=== PATIENT | male | born 1950 | race Caucasian/White ===

== ENCOUNTER → 2020-08-25 12:46 | Outpatient (REF) | payer MEDICARE, SELFPAY ==
--- NOTE | 2020-08-25 12:52 | HM_ITS ---
IDENTIFICATION DATA: 70-year-old male. INDICATION FOR TEST: Transient cerebral ischemic attack. TECHNIQUE: The patient was hooked up to cardiac event monitor on 08/25/2020, for a total period of 30 days to 09/24/2020. The patient was continuously monitored during this time. FINDINGS: Baseline rhythm is normal sinus rhythm with heart rate varying from 58 to 97 beats per minute. There was 1 isolated PVC noted. There were no other arrhythmias noted. No atrial fibrillation noted. The patient did not report any events. CONCLUSION: Cardiac event monitor is remarkable for: 1. Baseline normal sinus rhythm with 1 isolated PVC. 2. No atrial fibrillation. 3. No patient reported events. Nishant Carpenter MD NRS/MODL / [id number]
== END ==
LOC: HO.CARD 12:46
PROVIDERS: Visit Provider Internal Medicine Cardiovascular Disease
DX: I63.9 Cerebral infarction, unspecified (principal)
CPT/HCPCS: 93270

== ENCOUNTER 2020-11-13 11:50 | Outpatient (REF) | payer MEDICARE, OTHER, SELFPAY ==
[2020-11-13 12:22] LABS: MANUAL DIFF FLAG NO
[2020-11-13 12:30] LABS: Basophils Percent Auto 0.4 % (0-2); Eosinophils Absolute Auto 0.2 X10*3/uL (0.0-0.4); Eosinophils Percent Auto 3.3 % (0-4); Hematocrit 40.3 % (42-52); Hemoglobin 13.2 g/dl (14.0-18.0); Imm Gran Abs Auto 0.02 X10*3/uL (0.00-0.03); Imm Gran Pct Auto 0.4 % (0.0-0.4); Lymphocytes Absolute Auto 0.9 X10*3/uL (1.2-4.9); Lymphocytes Percent Auto 15.4 % (20-40); Mean Corpuscular HGB Conc 32.8 g/dl (31.0-36.0); Mean Corpuscular Hemoglobin 28.6 pg (27.0-33.0); Mean Corpuscular Volume 87.2 fL (80-98); Mean Platelet Volume 10.1 fL (9.4-12.4); Monocytes Absolute Auto 0.5 X10*3/uL (0.1-1.2); Monocytes Percent Auto 9.3 % (2-11); Neutrophils Absolute Auto 3.9 X10*3/uL (2.0-8.3); Neutrophils Percent Auto 71.2 % (45-73); Platelet Count 208 X10*3/uL (160-400); Red Blood Count 4.62 X10*6/uL (4.60-5.80); Red Cell Distribution Width 13.7 % (11.0-16.0); White Blood Count 5.5 X10*3/uL (4.8-10.8)
[2020-11-13 12:41] LABS: Estimated Average Glucose 186 mg/dL; Hemoglobin A1c % 8.1 %
[2020-11-13 13:03] LABS: Alanine Aminotransferase 17 U/L (0-40); Alkaline Phosphatase 72 U/L (39-117); Anion Gap 12 (12-20); Aspartate Amino Transferase 12 U/L (5-37); Bilirubin Total 0.7 mg/dL (0.0-1.0); Blood Urea Nitrogen 15 mg/dL (9-16); Calcium 8.8 mg/dL (8.4-10.2); Carbon Dioxide 26 mmol/L (22-29); Chloride 106 mmol/L (96-108); Cholesterol 160 mg/dL; Estimated Glomerular Filt Rate > 60; Glucose Fasting 130 mg/dL (60-99); HDL Cholesterol 40 mg/dL; LDL Cholesterol Calculated 111 mg/dl; Potassium 4.4 mmol/l (3.3-5.1); Sodium 140 mmol/L (135-145); Total Protein 6.9 g/dL (6.5-8.0); Triglycerides 49 mg/dL
[2020-11-13 13:36] LABS: Creatinine Urine 81.73 mg/dL; Microalbum/Creatinine Ratio Ur 14.6 ug/mg cr
== END 2020-11-13 11:51 | disposition home or self-care (01) ==
LOC: HO.LAB 11:50
PROVIDERS: PCP Internal Medicine; Visit Provider Internal Medicine
DX: Z00.00 Encounter for general adult medical examination without abnormal findings (principal); E11.9 Type 2 diabetes mellitus without complications
CPT/HCPCS: 36415; 80053; 80061; 82043; 83036; 85025

== ENCOUNTER 2021-03-31 15:49 | Emergency (ER) | payer MEDICARE, OTHER, SELFPAY ==
[2021-03-31 16:17] VITALS: BP 128/67; PULSE 82; RESP 14; TEMP 36.8; O2SAT 96; BMI 25.7
[2021-03-31] MEDS: Diphth,Pertus(ACell),Tet Adult 0.5 ML SYRINGE IM (16:43)
[2021-03-31] MEDS: Lidocaine HCl 1 % MPF 5 ML VIAL SUBCUT (16:45)
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
== END 2021-03-31 17:15 | disposition home or self-care (01) ==
PROVIDERS: Emergency Provider Internal Medicine
DX: S61.212A Laceration without foreign body of right middle finger without damage to nail, initial encounter (principal); W26.0XXA Contact with knife, initial encounter; E11.9 Type 2 diabetes mellitus without complications; E78.5 Hyperlipidemia, unspecified; Y93.9 Activity, unspecified; Y92.019 Unspecified place in single-family (private) house as the place of occurrence of the external cause; Y99.9 Unspecified external cause status; Z86.73 Personal history of transient ischemic attack (TIA), and cerebral infarction without residual deficits; Z79.4 Long term (current) use of insulin; Z79.02 Long term (current) use of antithrombotics/antiplatelets
CPT/HCPCS: 12001; 90471; 90715; 99284

== ENCOUNTER 2022-01-26 10:01 | Emergency (ER) | payer MEDICARE, OTHER, SELFPAY ==
[2022-01-26 10:03] VITALS: BP 198/80; PULSE 77; RESP 18; TEMP 36.2; O2SAT 99; BMI 27.1
--- NOTE | 2022-01-26 12:22 | ED.SKABFB ---
HPI - Skin/Abscess/Foreign Bdy General Chief complaint: Skin/Abscess/Foreign Body Stated complaint: Shingles? Time Seen by Provider: 01/26/22 12:13 Source: patient Mode of arrival: ambulatory Limitations: no limitations History of Present Illness HPI narrative: 71-year-old diabetic male presents for left-sided torso rash that started 3 days ago. It is painful, the pain is burning. Patient had the shingles vaccine a couple of years ago. Related Data Home Medications Medication Instructions Recorded Confirmed aspirin 81 mg tablet,delayed 81 mg PO DAILY 11/12/20 09/07/21 release (Adult Low Dose Aspirin) atorvastatin 80 mg tablet 80 mg PO DAILY 11/12/20 09/07/21 clopidogrel 75 mg tablet 75 mg PO DAILY 11/12/20 09/07/21 insulin aspart U-100 100 unit/mL unit SUBCUT 11/12/20 09/07/21 (3 mL) subcutaneous pen insulin detemir U-100 100 unit/mL unit SUBCUT 11/12/20 09/07/21 (3 mL) subcutaneous pen liraglutide 0.6 mg/0.1 mL (18 mg/3 mg SUBCUT 11/12/20 09/07/21 mL) subcutaneous pen injector metformin 1,000 mg tablet 1,000 mg PO BID 11/12/20 09/07/21 tamsulosin 0.4 mg capsule 0.4 mg PO DAILY 11/12/20 09/07/21 blood sugar diagnostic (True 09/07/21 09/07/21 Metrix Glucose Test Strip) lancets 30 gauge (TRUEplus Lancets) 09/07/21 09/07/21 pen needle, diabetic 31 gauge x 09/07/21 09/07/21 3/16 (BD Ultra-Fine Mini Pen Needle) Previous Rx's Medication Instructions Recorded fluticasone 100 mcg-salmeterol 50 1 inh INHALATION Q12H #60 ea 11/15/21 mcg/dose blistr powdr for inhalation (Advair Diskus) oxycodone-acetaminophen 2.5 mg-325 1 tab PO Q8H PRN #6 tab 01/26/22 mg tablet valacyclovir 500 mg tablet 1,000 mg PO BID 7 Days #28 tab 01/26/22 Allergies Allergy/AdvReac Type Severity Reaction Status Date / Time methotrexate [METHOTREXATE] Allergy Intermediate mouth Verified 01/26/22 10:06 sores. Review of Systems Constitutional: Constitutional: Denies body ache(s), Denies chills, Denies fatigue, Denies fever(s), Denies headache(s), Denies malaise and Denies weakness Eyes: Eyes: Denies diplopia ENT: Denies vertigo, Denies dizziness, Denies otalgia, Denies headache(s), Denies mouth pain, Denies post nasal drip, Denies sinus pain, Denies sinus pressure, Denies sore throat and Denies throat swelling Cardiovascular: Cardiovascular: Denies chest pain, Denies syncope, Denies leg edema, Denies lightheadedness, Denies Loss of Consciousness, Denies palpitations and Denies dyspnea Respiratory: Respiratory: Denies chest congestion, Denies cough and Denies dyspnea Gastrointestinal: Gastrointestinal: Denies abdominal pain, Denies hematochezia, Denies constipation, Denies diarrhea and Denies vomiting Musculoskeletal: Musculoskeletal: Reports no additional musculoskeletal complaints Integumentary/Breasts: Skin/Breast: Reports rash and Reports skin pain Neurologic: Denies confusion, Denies vertigo, Denies dizziness, Denies syncope, Denies headache(s) and Denies weakness Psychiatric: Psychiatric: Denies anxiety, Denies confusion and Denies depression Endocrine: Endocrine: Denies fatigue and Denies palpitations Allergic/Immunologic: Allergic/Immunologic: Denies throat swelling PMFSH Past Medical History Medical History Asthma CVA (cerebral vascular accident) Diabetes mellitus Surgical History History of deviated nasal septum History of total hip replacement Family History Family History (Updated 09/07/21 @ 11:51 by GARFIELD Tilley) Mother No problems noted. Father No problems noted. Social History Social History (Updated 09/07/21 @ 11:52 by GARFIELD Tilley) Housing: House Alcohol intake: never Patient Tobacco Use Status: Never used Tobacco Advance Directives: No Advance Directives Information Provided: No service: No Current occupational status: retired Physical Exam Vital Signs: Vital Signs: Last Vital Signs Temp 97.2 F 01/26/22 10:03 Pulse 77 01/26/22 10:03 Resp 18 01/26/22 10:03 BP 198/80 H 01/26/22 10:03 Pulse Ox 99 01/26/22 10:03 BMI result Body Mass Index 27.1 Const: General: No confusion Nutritional Appearance: well nourished Orientation/consciousness: No confusion Limitations: no limitations HEENT: Head: Yes normal to inspection, Yes normocephalic and Yes atraumatic Ears: hearing grossly normal bilaterally, external ears normal, TM's normal bilaterally and EAC's normal General nose exam: Normal external nose present Face and sinus: Yes normal facial exam and Yes sinuses nontender Mouth: Normal oral and palatal mucosa present Throat: Yes posterior oropharynx normal Eyes: Conjunctivae: conjunctivae normal Pupils: Equal, round and reactive pupils present EOM: EOMs intact bilaterally Neck: Neck: Yes full ROM, Yes no lymphadenopathy and Yes supple Resp: Effort & Inspection: normal respiratory effort and able to speak in complete sentences Auscultation: clear to auscultation bilaterally, no crackles, no rales, no rhonchi and no wheezes Cardio: Rate: regular rate Rhythm: regular rhythm Heart sounds: S1 normal heart sound present and S2 normal heart sound present GI: Inspection: Yes normal to inspection Palpation (GI): Soft to palpation, nontender, no guarding and not rigid Percussion: Yes normal to percussion Auscultation: normal bowel sounds Skin: Other: Multiple vesicles on erythematous base in a broad dermatomal distribution band posterior and anterior on patient's T12 dermatome on the left Neuro: General: No confusion Cranial nerves: Yes Equal, round and reactive pupils present Extrem: General: Yes normal to inspection and Yes full ROM Psych: Appearance: grossly normal Affect: normal affect Attitude: cooperative Thought process: Normal thought process present Course Course Course Narrative: 71-year-old male with less than 3 days of burning skin rash. On exam, patient has elevated blood pressure but otherwise stable vitals, patient has vesicles on an erythematous base in a dermatomal distribution. In the T12 distribution, patient has a herpes zoster rash on his anterior and posterior trunk. Will treat with valacyclovir and a short course of oxycodone, follow-up with PCP Discharge Plan Discharge Clinical Impression: Herpes zoster Patient Disposition: Home, Self-Care Instructions: [place] (ED) Additional Instructions: Please call your primary care provider for follow-up appointment from today's emergency room visit. If you have fevers, chest pain, shortness of breath, please return to the emergency room. Know that it will take a few days for the burning pain to resolve. Please start your valacyclovir today, take for 7 days, I have also given you a short course of pain medication. Prescriptions: New valacyclovir 500 mg tablet 1,000 mg PO BID 7 Days Qty: 28 0RF oxycodone-acetaminophen 2.5-325 mg tablet 1 tab PO Q8H PRN (Reason: pain) Qty: 6 0RF No Action fluticasone propion-salmeterol [Advair Diskus] 100-50 mcg/dose blister with device 1 inh inhalation Q12H Qty: 60 8RF Levemir FlexTouch U-100 Insuln 100 unit/mL (3 mL) insulin pen subcut 0RF insulin aspart U-100 100 unit/mL (3 mL) insulin pen subcut 0RF Victoza 3-Juan Manuel 0.6 mg/0.1 mL (18 mg/3 mL) pen injector subcut 0RF metformin 1,000 mg tablet 1,000 mg PO BID 0RF tamsulosin 0.4 mg capsule 0.4 mg PO DAILY 0RF clopidogrel 75 mg tablet 75 mg PO DAILY 0RF atorvastatin 80 mg tablet 80 mg PO DAILY 0RF aspirin [Adult Low Dose Aspirin] 81 mg tablet,delayed release (DR/EC) 81 mg PO DAILY 0RF (DME) pen needle, diabetic [BD Ultra-Fine Mini Pen Needle] 31 gauge x 3/16 needle See Rx Instructions .Route 0RF Rx Instructions: test four times a day (DME) True Metrix Glucose Test Strip Strip See Rx Instructions .Route 0RF Rx Instructions: test blood sugar four times a day (DME) lancets [TRUEplus Lancets] 30 gauge misc See Rx Instructions .Route 0RF Rx Instructions: Test four times a day
== END 2022-01-26 12:38 | disposition home or self-care (01) ==
PROVIDERS: Emergency Provider Emergency Medicine
DX: B02.9 Zoster without complications (principal); E11.9 Type 2 diabetes mellitus without complications; E78.5 Hyperlipidemia, unspecified; Z86.73 Personal history of transient ischemic attack (TIA), and cerebral infarction without residual deficits; Z79.4 Long term (current) use of insulin; Z79.82 Long term (current) use of aspirin; Z79.02 Long term (current) use of antithrombotics/antiplatelets
CPT/HCPCS: 99283

== ENCOUNTER 2022-03-23 09:49 | Outpatient (REF) | payer MEDICARE, OTHER, SELFPAY ==
[2022-03-23 10:47] LABS: MANUAL DIFF FLAG NO
[2022-03-23 11:02] LABS: Hematocrit 43.9 % (42.0-52.0); Hemoglobin 14.6 g/dl (14.0-18.0); Imm Gran Pct Auto 0.3 % (0.0-0.4); Lymphocytes Percent Auto 20.9 % (20-40); Mean Corpuscular HGB Conc 33.3 g/dl (31.0-36.0); Mean Corpuscular Hemoglobin 29.1 pg (27.0-33.0); Mean Corpuscular Volume 87.6 fL (80.0-98.0); Mean Platelet Volume 10.1 fL (9.4-12.4); Monocytes Percent Auto 9.5 % (2-11); Neutrophils Percent Auto 57.8 % (45-73); Platelet Count 213 X10*3/uL (160-400); Red Blood Count 5.01 X10*6/uL (4.60-5.80); Red Cell Distribution Width 14.7 % (11.0-16.0); White Blood Count 6.1 X10*3/uL (4.8-10.8)
[2022-03-23 11:03] LABS: Basophils Absolute Auto 0.1 X10*3/uL (0.0-0.2); Basophils Percent Auto 1.1 % (0-2); Eosinophils Absolute Auto 0.6 X10*3/uL (0.0-0.4); Eosinophils Percent Auto 10.4 % (0-4); Imm Gran Abs Auto 0.02 X10*3/uL (0.00-0.03); Lymphocytes Absolute Auto 1.3 X10*3/uL (1.2-4.9); Monocytes Absolute Auto 0.6 X10*3/uL (0.1-1.2); Neutrophils Absolute Auto 3.5 x10*3/uL (2.0-8.3)
[2022-03-23 11:24] LABS: Alanine Aminotransferase 27 U/L (0-40); Albumin Level 4.2 g/dL (3.5-5.0); Alkaline Phosphatase 65 U/L (39-117); Anion Gap 12 (12-20); Aspartate Amino Transferase 19 U/L (5-37); Bilirubin Total 0.7 mg/dL (0.0-1.0); Blood Urea Nitrogen 17 mg/dL (9-16); Calcium 9.5 mg/dL (8.4-10.2); Carbon Dioxide 26 mmol/L (22-29); Chloride 104 mmol/L (96-108); Cholesterol 193 mg/dL; Estimated Average Glucose 154 mg/dL; Estimated Glomerular Filt Rate > 60; Glucose Fasting 159 mg/dL (60-99); HDL Cholesterol 36 mg/dL; LDL Cholesterol Calculated 136 mg/dl; Potassium 4.5 mmol/L (3.3-5.1); Sodium 137 mmol/L (135-145); Total Protein 7.3 g/dL (6.5-8.0); Triglycerides 107 mg/dL
== END 2022-03-23 09:50 | disposition home or self-care (01) ==
LOC: HO.10HDL 09:49
PROVIDERS: Visit Provider Internal Medicine
DX: Z00.00 Encounter for general adult medical examination without abnormal findings (principal); Z13.0 Encounter for screening for diseases of the blood and blood-forming organs and certain disorders involving the immune mechanism; E11.9 Type 2 diabetes mellitus without complications
CPT/HCPCS: 36415; 80053; 80061; 83036; 85025

== ENCOUNTER 2022-10-19 14:11 | Emergency (ER) | payer MEDICARE, OTHER, SELFPAY ==
[2022-10-19 14:16] VITALS: BP 149/65; PULSE 79; RESP 18; TEMP 36.5; O2SAT 97; BMI 26.2
--- NOTE | 2022-10-19 14:24 | ED.WOUNDLAC ---
HPI - Wound/Laceration General Chief Complaint: Wound/Laceration Stated Complaint: L Arm Lac Time Seen by Provider: 10/19/22 14:22 Source: patient Mode of arrival: EMS Limitations: no limitations History of Present Illness HPI narrative: 72-year-old male who presents emergency department for evaluation of infection of his left wrist. The patient states that approximately 5 days prior he noticed a pimple on his wrist which she cut with a sterile scalpel. He states that he was able to express some pus from the wound. He states that since then the wound is became more swollen and red and is draining pus. He denied any systemic symptoms such as fever, chills, fatigue or weakness. Patient states that he contacted his doctor's office and was advised to go to the emergency department for evaluation. Related Data Home Medications Medication Instructions Recorded Confirmed aspirin 81 mg tablet,delayed 81 mg PO DAILY 11/12/20 10/10/22 release (Adult Low Dose Aspirin) atorvastatin 80 mg tablet 80 mg PO DAILY 11/12/20 10/10/22 clopidogrel 75 mg tablet 75 mg PO DAILY 11/12/20 10/10/22 insulin aspart U-100 100 unit/mL unit subcut 11/12/20 10/10/22 (3 mL) subcutaneous pen insulin detemir U-100 100 unit/mL unit subcut 11/12/20 10/10/22 (3 mL) subcutaneous pen liraglutide 0.6 mg/0.1 mL (18 mg/3 mg subcut 11/12/20 10/10/22 mL) subcutaneous pen injector metformin 1,000 mg tablet 1,000 mg PO BID 11/12/20 10/10/22 tamsulosin 0.4 mg capsule 0.4 mg PO DAILY 11/12/20 10/10/22 blood sugar diagnostic (True 09/07/21 10/10/22 Metrix Glucose Test Strip) lancets 30 gauge (TRUEplus Lancets) 09/07/21 10/10/22 pen needle, diabetic 31 gauge x 09/07/21 10/10/22 3/16 (BD Ultra-Fine Mini Pen Needle) Previous Rx's Medication Instructions Recorded rosuvastatin 40 mg tablet 40 mg PO DAILY #90 tabs 01/26/22 valacyclovir 500 mg tablet 1,000 mg PO BID 7 days #28 tabs 01/26/22 oxycodone-acetaminophen 5 mg-325 0.5 tab PO Q8H PRN pain #6 tabs 02/02/22 mg tablet hydroxyzine pamoate 25 mg capsule 25 mg PO QID PRN itching #60 caps 03/23/22 methylprednisolone 4 mg tablets in See Rx Instructions PO PER PKG DIR 06/22/22 a dose pack (Medrol (Juan Manuel)) #21 ea fluticasone 100 mcg-salmeterol 50 1 inh inhalation Q12H #60 ea 08/02/22 mcg/dose blistr powdr for inhalation (Advair Diskus) cephalexin 500 mg capsule 500 mg PO QID 7 days #28 caps 10/19/22 Allergies Allergy/AdvReac Type Severity Reaction Status Date / Time methotrexate [METHOTREXATE] Allergy Intermediate mouth Verified 10/10/22 10:14 sores. Review of Systems Review of Systems: Yes all other systems are reviewed and are negative [facility] Past Medical History [facility] Narrative: Social history: Patient denies tobacco, alcohol and drug use. Medical History Asthma CVA (cerebral vascular accident) Diabetes mellitus Surgical History History of deviated nasal septum History of total hip replacement Family History Family History Mother No problems noted. Father No problems noted. Social History Social History Housing: House Alcohol intake: never Patient Tobacco Use Status: Never used Tobacco e-Cigarette/Vaping Use: Never Used Second Hand Smoke Exposure: No Advance Directives: No Advance Directives Information Provided: No service: No Current occupational status: retired Current occupational exposures/hazards: No Cognitive needs: No Hearing needs: No Vision needs: Yes Physical Exam Vital Signs: Vital Signs: Last Vital Signs Temp 97.7 F 10/19/22 14:16 Pulse 79 10/19/22 14:16 Resp 18 10/19/22 14:16 BP 149/65 H 10/19/22 14:16 Pulse Ox 97 10/19/22 14:16 O2 Del Method 10/19/22 14:16 BMI result Body Mass Index 26.2 Const: Other: Awake, alert, male patient, very pleasant cooperative, does not appear to be in distress, answers all questions appropriately HEENT: Other: Normal cephalic atraumatic Resp: Other: No respiratory distress Extrem: Other: The patient has a draining abscess to his left ulnar aspect of his wrist measuring approximately 3 x 3 cm, the patient also has approximately 1 cm of surrounding erythema, there is no lymphangitis noted Psych: Other: Pleasant, cooperative, oriented person place Course Course Course Narrative: 72-year-old male who presents emergency department for evaluation of a draining abscess to his left wrist was cellulitis, this occurred secondary to the patient draining a pimple with a sterile scalpel 5 days prior. Patient had no systemic symptoms. At this time I do not think that the abscesses to be incised injury since it is actively draining. The wound was covered with bacitracin and a nonstick gauze dressing by the nurse. Patient was given his 1st dose of cephalexin 500 mg orally. Patient was started on cephalexin 500 mg 4 times a day for 7 days. He was given printed and verbal instructions on wound care and discharged home. Discharge Plan Discharge Clinical Impression: Cellulitis of left wrist Patient Disposition: Home, Self-Care Instructions: Cellulitis (ED) Additional Instructions: Your wound on your left wrist is infected, it is draining pus so we do not need to cut into it to drainage further. You do not need IV antibiotics at this time since you have not been placed on oral antibiotics yet. I want you to apply bacitracin 3 times a day to this wound. Keep the wound covered with gauze bandages. Apply heating pad on low for 15 minutes 4 to 6 times a day over the covered wound, this will increase the blood flow to the area and help the healing process. Keep your arm elevated this will help blood drain out of your arm and also help the healing process. Take Keflex (cephalexin) 500 mg pills, 1 pill 4 times a day for 7 days. Take Tylenol (acetaminophen) 500 mg pills, 2 pills every 4 to 6 hours as needed for pain. Follow-up with your doctor in 2 days. Please return to the emergency department if your symptoms get worse or if you develop any symptoms that are concerning to you. Prescriptions: New cephalexin 500 mg capsule 500 mg PO QID 7 Days Qty: 28 0RF No Action rosuvastatin 40 mg tablet 40 mg PO DAILY Qty: 90 8RF fluticasone propion-salmeterol [Advair Diskus] 100-50 mcg/dose blister with device 1 inh inhalation Q12H Qty: 60 8RF valacyclovir 500 mg tablet 1,000 mg PO BID 7 Days Qty: 28 0RF Levemir FlexTouch U-100 Insuln 100 unit/mL (3 mL) insulin pen subcut insulin aspart U-100 100 unit/mL (3 mL) insulin pen subcut Victoza 3-Juan Manuel 0.6 mg/0.1 mL (18 mg/3 mL) pen injector subcut metformin 1,000 mg tablet 1,000 mg PO BID tamsulosin 0.4 mg capsule 0.4 mg PO DAILY clopidogrel 75 mg tablet 75 mg PO DAILY atorvastatin 80 mg tablet 80 mg PO DAILY aspirin [Adult Low Dose Aspirin] 81 mg tablet,delayed release (DR/EC) 81 mg PO DAILY oxycodone-acetaminophen 5-325 mg tablet 0.5 tab PO Q8H PRN (Reason: pain) Qty: 6 0RF Rx Instructions: cut pills in half hydroxyzine pamoate 25 mg capsule 25 mg PO QID PRN (Reason: itching) Qty: 60 3RF (DME) pen needle, diabetic [BD Ultra-Fine Mini Pen Needle] 31 gauge x 3/16 needle See Rx Instructions .Route Rx Instructions: test four times a day (DME) True Metrix Glucose Test Strip Strip See Rx Instructions .Route Rx Instructions: test blood sugar four times a day (DME) lancets [TRUEplus Lancets] 30 gauge misc See Rx Instructions .Route Rx Instructions: Test four times a day methylprednisolone [Medrol (Juan Manuel)] 4 mg tablets,dose pack See Rx Instructions PO PER PKG DIR Qty: 21 0RF Rx Instructions: PO PER PKG DIR
[2022-10-19] MEDS: cephALEXin 500 MG CAPSULE PO (14:29)
== END 2022-10-19 14:33 | disposition home or self-care (01) ==
PROVIDERS: Emergency Provider Emergency Medicine Emergency Medical Services; PCP Internal Medicine
DX: L02.414 Cutaneous abscess of left upper limb (principal); L03.114 Cellulitis of left upper limb; A49.02 Methicillin resistant Staphylococcus aureus infection, unspecified site; W27.8XXA Contact with other nonpowered hand tool, initial encounter; Z79.82 Long term (current) use of aspirin; Z79.4 Long term (current) use of insulin; Z79.02 Long term (current) use of antithrombotics/antiplatelets; Z79.899 Other long term (current) drug therapy; E11.9 Type 2 diabetes mellitus without complications
CPT/HCPCS: 87070; 87077; 87186; 87205; 99282; 99283

== ENCOUNTER 2022-12-14 08:07 | Day surgery (SDC) | payer MEDICARE, OTHER, SELFPAY ==
[2022-12-14 08:11] VITALS: BMI 25.7
[2022-12-14 08:17] VITALS: BP 135/102; PULSE 67; RESP 19; TEMP 36.6; O2SAT 97
[2022-12-14 08:27] LABS: Glucose, Whole Blood 80 mg/dL (60-115)
[2022-12-14] MEDS: Lactated Ringers 1,000 ML 50 ML IVCONT (08:47)
--- NOTE | 2022-12-14 09:18 | HO.ANESPROP2 ---
HPI - Anesthesia Eval Consult details Narrative: 72 yo male patient for EGD with balloon dilatation, Colonoscopy PMF Active Problems Active Problems: All Active Problems (Updated 11/01/22 @ 12:04 by Wagner Patel MD) Cellulitis of left hand (Acute) Shingles (Acute) Dyslipidemia (Acute) Medicare annual wellness visit, initial (Acute ~09/07/21) Skin cancer screening (Acute) Colon cancer screening (Acute) Screening for prostate cancer (Acute) CVA (cerebral vascular accident) (Acute)- no residual effects Asthma (Acute) - cold induced. Uses inhalers in winter Diabetes mellitus (Acute) Past Medical History Medical History Asthma CVA (cerebral vascular accident) Diabetes mellitus Family History Family History Mother No problems noted. Father No problems noted. Family history of problems with anesthesia: No Surgical History Surgical History History of deviated nasal septum History of total hip replacement History of Problems with Anesthesia: No Social History Social History Housing: House Alcohol intake: never Patient Tobacco Use Status: Never used Tobacco e-Cigarette/Vaping Use: Never Used Second Hand Smoke Exposure: No Are you DNR?: No Advance Directives: No Advance Directives Information Provided: Yes Recently lost weight without trying: No Nutrition Risks: No Nutritional Risk service: No Current occupational status: retired Current occupational exposures/hazards: No Cognitive needs: No Hearing needs: No Vision needs: Yes Meds Allergies Allergy/AdvReac Type Severity Reaction Status Date / Time methotrexate [METHOTREXATE] Allergy Intermediate mouth Verified 11/01/22 11:02 sores. Active Medications: Current Medications Lactated Ringer's (Lr) 1,000 mls @ 50 mls/hr IVCONT .Q20H ANGY Last Admin: 12/14/22 08:47 Dose: 50 mls/hr Sodium Biphosphate/Sodium Phosphate (Sodium Phosphate,Beadle-Dibasic 133 Ml Enema) 133 ml ME ONCE PRN PRN Reason: Poor Colonoscopy Prep Results Home Medications Medication Instructions Recorded Confirmed Last Taken Type aspirin 81 mg tablet,delayed 81 mg PO DAILY 11/12/20 11/01/22 12/12/22 History release (Adult Low Dose Aspirin) insulin aspart U-100 100 unit/mL unit subcut 11/12/20 11/01/22 12/13/22 History (3 mL) subcutaneous pen insulin detemir U-100 100 unit/mL 14 unit subcut 11/12/20 11/01/22 12/14/22 History (3 mL) subcutaneous pen liraglutide 0.6 mg/0.1 mL (18 mg/3 mg subcut 11/12/20 11/01/22 09/05/22 History mL) subcutaneous pen injector metformin 1,000 mg tablet 1,000 mg PO BID 11/12/20 11/01/22 12/13/22 History tamsulosin 0.4 mg capsule 0.4 mg PO DAILY 11/12/20 11/01/22 12/13/22 History blood sugar diagnostic (True 09/07/21 11/01/22 Unknown History Metrix Glucose Test Strip) lancets 30 gauge (TRUEplus Lancets) 09/07/21 11/01/22 Unknown History pen needle, diabetic 31 gauge x 09/07/21 11/01/22 Unknown History 3/16 (BD Ultra-Fine Mini Pen Needle) Exam Exam Date and Time: December 14, 2022917 Height,Weight and Vital Signs: Height 6 ft Weight 86.183 kg Last Vital Signs Temp 98 F 12/14/22 08:17 Pulse 67 12/14/22 08:17 Resp 19 12/14/22 08:17 BP 135/102 H 12/14/22 08:17 Pulse Ox 97 12/14/22 08:17 O2 Del Method 12/14/22 08:17 Pertinent Lab Results Pertinent Lab Results: Laboratory Tests 12/14/22 08:23 POC Glucose 80 Airway Mallampati Class: II TM Dist: >3cm Neck ROM: Full Loose/Missing/Broken Teeth: Yes (Edentullus) Heart: RRR + systolic murmur Lungs: CTAB Assessment and Plan Assessment Anesthesia Assessment: Anesthesia Plan Discussed and Chart Reviewed Final Anesthetic Review Family History of Problems with Anesthesia: No History of Problems with Anesthesia: No NPO: Yes ASA Class: III Final Preanesthetic Review: No Changes in Pt Med Stat, Meds/Allgs Chart Reviewed, Consent Obtained/Reviewed and Anes Risks/Benef Reviewed Patient Risk: Intermediate Procedure Risk: Low Assessment/Block/Sedation in SS: Assess/Block/Sedation-SS Anesthetic Plan Anesthetic Plan: MAC: Disposition: Standard PACU
[2022-12-14 10:51] VITALS: BP 81/49; PULSE 76; RESP 16; TEMP 37; O2SAT 98
--- NOTE | 2022-12-14 10:56 | PM.OP ---
Brief Operative Note Date of Service: 12/14/22 Pre-op diagnosis: Dysphagia, Screening Post-op diagnosis: other (Esophageal stricture, Esophagitis, Hiatal hernia, Diverticulosis) Procedure: EGD with biospies and Balloon dilation with a 15-16.5-18mm balloon, Colonoscopy to the cecum Surgeon: Santi Croft Anesthesia: MAC Was an Security Consultant used for this Procedure?: No Estimated blood loss (mL): 2.0 Pathology: other (A. EG Junction at 34cm B. Gastric polyps)
[2022-12-14 11:06] VITALS: BP 95/50; PULSE 83; RESP 17; O2SAT 96
[2022-12-14 11:22] VITALS: BP 127/60; PULSE 74; RESP 18; TEMP 37; O2SAT 96
--- NOTE | 2022-12-14 21:43 | OP_ITS ---
SURGEON: Santi Croft MD INDICATIONS: The patient presents for evaluation of intermittent dysphagia, personal history of colon polyps, and colorectal cancer screening. Full consent has been obtained from him for this, including risks of bleeding and perforation. PREOPERATIVE DIAGNOSIS: POSTOPERATIVE DIAGNOSIS: PROCEDURE PERFORMED: Esophagogastroduodenoscopy with balloon dilation and biopsies, and colonoscopy to the cecum. ESTIMATED BLOOD LOSS: COMPLICATIONS: ANESTHESIA: Monitored anesthesia care. ASSISTANTS: SPECIMENS: PREOPERATIVE DIAGNOSES: Dysphagia and colorectal cancer screening. POSTOPERATIVE DIAGNOSES: Dysphagia and colorectal cancer screening, esophageal stricture, esophagitis, gastric polyps, hiatal hernia, diverticulosis, and internal hemorrhoids. DESCRIPTION OF PROCEDURE: The patient was placed in the left lateral decubitus position. The Olympus video gastroscope was passed in the posterior oropharynx and upper esophagus under direct vision. The scope was passed slowly to the distal esophagus. The gastroesophageal junction appeared at 34 cm. This was notable for some evidence of esophagitis with associated edema and erosions. There also appeared to be a mild fibrotic stricture, although the scope did easily enter the hiatal hernia. There was no mass. The scope was advanced to the pylorus, and the duodenum was cannulated to the descending portion. The duodenum including the bulb appeared normal without mass or ulceration. The scope was withdrawn back in the stomach. The gastric antrum and body appeared normal with good peristalsis. The scope was retroflexed visualizing the proximal stomach carefully, which appeared normal, without any sign of mass or ulceration, other than some hyperplastic appearing polyps. Two of these were biopsied. The scope was withdrawn back into the esophagus. Given his symptomatology, I did use a [employer] incremental balloon to dilate the gastroesophageal junction from 15 mm to 16.5 mm to 18 mm at the recommended pressures for between 30 and 60 seconds each. There was definitely some heme noted post-dilation. Biopsies were obtained at the EG junction as well. Proximal to the EG junction, the esophageal mucosa appeared normal. The scope was withdrawn from the patient. He was turned around for the colonoscopy. The digital rectal exam revealed no abnormalities. The Olympus video pediatric colonoscope was entered into the rectum and advanced to the cecum with associated abdominal wall pressure. Once in the cecum, I did identify a cecal pouch with appendiceal orifice and a normal-appearing ileocecal valve. The entire cecum was well-visualized and appeared normal. The scope was then slowly withdrawn assessing all mucosal surfaces carefully. The prep in the majority of the colon was good, although other parts had a fair amount of liquid stool and some solid material which had to be irrigated and suctioned away as best as possible but did not allow for 100% visualization. I did not visualize any sign of polyps, colitis, nor angiodysplasia. There was a moderate amount of sigmoid diverticulosis. In the rectum, the scope was retroflexed visualizing internal hemorrhoids but no other pathology. The rectal mucosa appeared normal. The scope was straightened and withdrawn from the patient. He tolerated both procedures well and was returned to the recovery area in stable condition. IMPRESSION: 1. Esophageal stricture with associated esophagitis. 2. Hiatal hernia. 3. Gastric polyps. 4. Diverticulosis. 5. Internal hemorrhoids. PLAN: I shall start the patient on omeprazole 20 mg daily given today's findings. He was advised to resume his aspirin in 72 hours. Given his age, today's findings, and previous colonoscopies, I do not think he would need any further screening colonoscopies. He was advised to see me in followup as well. MD TG Ferguson/EMILY / [id number] MTDD
== END 2022-12-14 12:02 | disposition home or self-care (01) ==
PROVIDERS: PCP Internal Medicine; Visit Provider Internal Medicine
PROC: (CPT 43249; principal; 2022-12-14 09:40)
PROC: 0DJD8ZZ Inspection of Lower Intestinal Tract, Via Natural or Artificial Opening Endoscopic (ICD-10-PCS; CPT 45378; 2022-12-14 09:40)
DX: Z12.11 Encounter for screening for malignant neoplasm of colon (principal); Z86.010 Personal history of colon polyps; K57.30 Diverticulosis of large intestine without perforation or abscess without bleeding; K64.8 Other hemorrhoids; R13.19 Other dysphagia; K22.2 Esophageal obstruction; K20.80 Other esophagitis without bleeding; K31.7 Polyp of stomach and duodenum; K44.9 Diaphragmatic hernia without obstruction or gangrene; J45.909 Unspecified asthma, uncomplicated; E11.8 Type 2 diabetes mellitus with unspecified complications; Z79.4 Long term (current) use of insulin; Z79.82 Long term (current) use of aspirin; Z79.899 Other long term (current) drug therapy; Z86.73 Personal history of transient ischemic attack (TIA), and cerebral infarction without residual deficits
CPT/HCPCS: 43249; 43239; G0105; 82947; 88305; 88342; C1726

== ENCOUNTER → 2025-01-28 11:11 | Outpatient (RCR) | payer MEDICARE, OTHER, SELFPAY | END | disposition home or self-care (01) | LOC: HO.SH 08-12 08:57 | PROVIDERS: Visit Provider Psychiatry & Neurology Neurology | DX: I69.320 Aphasia following cerebral infarction (principal); I69.322 Dysarthria following cerebral infarction | CPT/HCPCS: 92523 ==